=== PATIENT | female | born 1980 | race Caucasian/White ===

== ENCOUNTER 2017-08-01 14:13 | Emergency (ER) | payer OTHER ==
[2017-08-01 14:19] VITALS: BP 133/85; PULSE 76; RESP 18; TEMP 97.7
[2017-08-01] MEDS ORDERED: KETOROLAC 30 MG/ML 1 ML VIAL IM STA (14:26)
--- NOTE | 2017-08-01 14:28 | ED ---
ENT HPI - General Chief complaint: Dental/Oral Stated complaint: Dental Pain Time Seen by Provider: 08/01/17 14:19 Source: patient Mode of arrival: ambulatory Limitations: no limitations - History of Present Illness Initial comments: 36 year-old female patient presents to the emergency department today for complaints of left upper dental pain and facial swelling. Patient states that 2 days ago she broke a tooth off and has been having pain since. Patient states that over the last day or 2 she has been developing some swelling to the outside of the face. States she has been taking Advil and applying ice however this is not helping her symptoms. She states that she did call her dentist and does have an appointment for Friday. She denies any difficulty swallowing, or difficulty opening and closing her mouth. She denies any fever, chills, nausea , or vomiting. - Related Data Home Medications Medication Instructions Recorded Confirmed Gabapentin [Neurontin] 300 mg PO BID PRN 04/26/15 04/26/15 Sulfamethox-Tmp 800-160Mg [Bactrim 1 each PO Q12HR 04/26/15 04/26/15 Ds] hydrOXYzine PAMOATE [Hydroxyzine 50 mg PO QID PRN 04/26/15 04/26/15 Pamoate] traMADol HCL [Ultram] 50 mg PO Q6HR PRN 04/26/15 04/26/15 Previous Rx's Medication Instructions Recorded Famotidine [Pepcid] 20 mg PO BID #14 tablet 04/26/15 predniSONE 20 mg PO BID #8 tab 04/26/15 Acetaminophen-Codeine 300-30mg 1 tab PO Q6H PRN #20 tablet 08/01/17 [Tylenol #3] Clindamycin [Cleocin] 300 mg PO Q6H #80 capsule 08/01/17 Allergies Allergy/AdvReac Type Severity Reaction Status Date / Time Penicillins Allergy Anaphylaxis Verified 08/01/17 14:19 Review of Systems ROS Statement: Those systems with pertinent positive or pertinent negative responses have been documented in the HPI. ROS Other: All systems not noted in ROS Statement are negative. Past Medical History Past Medical History: Asthma History of Any Multi-Drug Resistant Organisms: None Reported Past Surgical History: Section, Cholecystectomy Past Psychological History: No Psychological Hx Reported Smoking Status: Current every day smoker Past Alcohol Use History: Occasional Past Drug Use History: None Reported General Exam Limitations: no limitations General appearance: alert, in no apparent distress, other (This is a well- developed, well-nourished adult female patient in no acute distress. Vital signs on presentation 97.7F, pulse 76, respirations 18, blood pressure 133/85, pulse ox 100% on room air.) Eye exam: Present: normal appearance, PERRL, EOMI. Absent: scleral icterus, conjunctival injection, periorbital swelling ENT exam: Present: normal exam, normal oropharynx, mucous membranes moist, other (Patient has multiple dental caries, fractured tooth #13. There is surrounding gingival erythema and swelling, no area of drainable abscess. There is mild outside facial swelling on the left side.) Neck exam: Present: normal inspection. Absent: tenderness, meningismus, lymphadenopathy Respiratory exam: Present: normal lung sounds bilaterally. Absent: respiratory distress, wheezes, rales, rhonchi, stridor Cardiovascular Exam: Present: regular rate, normal rhythm, normal heart sounds. Absent: systolic murmur, diastolic murmur, rubs, gallop, clicks Neurological exam: Present: alert, oriented X3, CN II-XII intact Psychiatric exam: Present: normal affect, normal mood Skin exam: Present: warm, dry, intact, normal color. Absent: rash Course Vital Signs 08/01/17 14:17 Temperature 97.7 F Pulse Rate 76 Respiratory 18 Rate Blood Pressure 133/85 O2 Sat by Pulse 100 Oximetry Medical Decision Making - Medical Decision Making 36 year-old female patient presented to the emergency department today for evaluation of left upper dental pain and facial swelling. Physical examination did reveal a fractured tooth #13 with surrounding gingival erythema and swelling. There was no evidence of drainable abscess. As patient does have some mild facial swelling we will put her on clindamycin. We'll also give her Tylenol No. 3 with codeine for pain relief. She does have an appointment with her dentist on Friday, she is urged to keep this appointment. She is also instructed to return here immediately for any other new, worsening, or concerning symptoms. She verbalizes understanding and agrees with this plan. Disposition Clinical Impression: Dental caries, Broken tooth Disposition: HOME SELF-CARE Condition: Good Instructions: Dental Abscess (ED), Dental Caries (ED), Toothache (ED) Additional Instructions: Take antibiotic and pain medication prescription as directed. Apply warm compresses or cool compresses to the outside of the face. Keep your dentist appointment as have planned. Return here immediately for any new, worsening, or concerning symptoms. Prescriptions: Acetaminophen-Codeine 300-30mg [Tylenol #3] 1 tab PO Q6H PRN #20 tablet PRN Reason: Pain Clindamycin [Cleocin] 300 mg PO Q6H #80 capsule Referrals: Siva Villalpando MD [Primary Care Provider] - 1-2 days Time of Disposition: 14:28
== END 2017-08-01 14:37 | disposition home or self-care (01) ==
LOC: EC 14:13
DX: S02.5XXA Fracture of tooth (traumatic), initial encounter for closed fracture (principal); K02.9 Dental caries, unspecified; F17.200 Nicotine dependence, unspecified, uncomplicated; Z88.0 Allergy status to penicillin; X58.XXXA Exposure to other specified factors, initial encounter
CPT/HCPCS: 99282; 96372; J1885

== ENCOUNTER → 2017-10-04 | Outpatient (CLI) | payer SELFPAY ==
[2017-10-04 10:29] LABS: ALT 33 U/L (9-52); AST 18 U/L (14-36); Blood Urea Nitrogen 12 mg/dL (7-17); Glucose 85 mg/dL (74-99)
[2017-10-04 10:42] LABS: HCG,Quantitative Serum <2.4 mIU/mL; T4, Free (Free Thyroxine) 0.89 ng/dL (0.78-2.19)
[2017-10-04 17:13] LABS: Thyroid Peroxidase Antibodies 30.1 U/mL (0.0-60.0); Vitamin D 25 Hydroxy 15.9 ng/mL (30.0-100.0)
[2017-10-04 17:15] LABS: Insulin Level 7.4 mIU/mL (3.0-25.0)
[2017-10-04 19:57] LABS: Hemoglobin A1C 4.9 % (4.0-6.0)
[2017-10-05 12:41] LABS: HIV AB P24 Non-Reactive (Non-Reactive); HIV P24 AG Non-Reactive (Non-Reactive)
[2017-10-06 07:47] LABS: Varicella IgM Antibody 0.62 INDEX (<=0.90)
== END | disposition home or self-care (01) ==
LOC: LABWHC1 09:05
PROVIDERS: ATTEND Obstetrics & Gynecology Reproductive Endocrinology
DX: N97.0 Female infertility associated with anovulation (principal)
CPT/HCPCS: 36415; 82306; 82565; 82670; 82947; 83001; 83036; 83498; 83520; 83525; 84146; 84402; 84403; 84439; 84443; 84450; 84460; 84481; 84520; 84702; 86376; 86644; 86645; 86762; 86780; 86787; 86800; 86850; 86900; 86901; 87390

== ENCOUNTER 2022-01-01 10:05 | Emergency (ER) | payer OTHER ==
[2022-01-01 10:09] VITALS: BP 141/81; PULSE 64; RESP 20; TEMP 98.6
[2022-01-01] MEDS ORDERED: IBUPROFEN 600 MG TAB PO STA (10:47)
--- NOTE | 2022-01-01 11:44 | XR ---
EXAMINATION TYPE: XR chest 2V DATE OF EXAM: 01/01/2022 COMPARISON: 06/25/2013 HISTORY: 41-year-old female chest wall pain TECHNIQUE: PA and lateral views FINDINGS: Heart normal size. Aorta and pulmonary vasculature within normal limits. Mild interstitial prominence and peribronchial cuffing. No consolidation or pleural effusion. IMPRESSION: Interstitial prominence and peribronchial cuffing. Correlate for bronchitis, asthma, or underlying at ypical pneumonias.
--- NOTE | 2022-01-01 12:23 | ED ---
URI HPI - General Chief Complaint: Upper Respiratory Infection Stated Complaint: Covid+/Abd Swelling Time Seen by Provider: 01/01/22 10:14 Source: patient, RN notes reviewed, old records reviewed Mode of arrival: ambulatory Limitations: no limitations - History of Present Illness Initial Comments: Patient is a 41-year-old female, history of mild asthma, presenting to emergency Department with complaints of some bilateral lower rib pain for the past few days. Patient was diagnosed with cold at exactly 1 week ago. She has been having pretty mild symptoms. Her PCP prescribed her antiviral medication as well as a steroid and a cough medicine. She does feel like overall her symptoms have been improving. She states over the past few days she has been having some bilateral lower rib pain, pain with deep inhalation. She has not been trying any Tylenol or Motrin for this. She states her doctor told her not to take ibuprofen. She denies any fevers or chills, no shortness of breath. She states she does have history of anxiety and feels like sometimes her anxiety is worsening secondary to her worry over the virus. And denies any other comp laints at this time. - Related Data Home Medications Medication Instructions Recorded Confirmed Gabapentin [Neurontin] 300 mg PO BID PRN 04/26/15 04/26/15 Sulfamethox-Tmp 800-160Mg [Bactrim 1 each PO Q12HR 04/26/15 04/26/15 Ds] hydrOXYzine pamoate [Hydroxyzine 50 mg PO QID PRN 04/26/15 04/26/15 Pamoate] traMADol HCL [Ultram] 50 mg PO Q6HR PRN 04/26/15 04/26/15 Previous Rx's Medication Instructions Recorded Famotidine [Pepcid] 20 mg PO BID #14 tablet 04/26/15 predniSONE [Deltasone] 20 mg PO BID #8 tab 04/26/15 Acetaminophen-Codeine 300-30mg 1 tab PO Q6H PRN #20 tablet 08/01/17 [Tylenol #3] Clindamycin [Cleocin] 300 mg PO Q6H #80 capsule 08/01/17 Allergies Allergy/AdvReac Type Severity Reaction Status Date / Time Penicillins Allergy Anaphylaxis Verified 01/01/22 10:09 Review of Systems ROS Statement: Those systems with pertinent positive or pertinent negative responses have been documented in the HPI. ROS Other: All systems not noted in ROS Statement are negative. Past Medical History Past Medical History: Asthma History of Any Multi-Drug Resistant Organisms: None Reported Past Surgical History: Section, Cholecystectomy Past Psychological History: No Psychological Hx Reported Smoking Status: Current every day smoker Past Alcohol Use History: Occasional Past Drug Use History: None Reported General Exam - General Exam Comments Initial Comments: GENERAL: Patient is well-developed and well-nourished. Patient is nontoxic and in no acute distress. HEAD: Atraumatic, normocephalic. EYES: Pupils equal round and reactive to light, extraocular movements intact, sclera anicteric, conjunctiva are normal. Eyelids were unremarkable. ENT: TMs normal, nares patent, oropharynx clear without exudates. Moist mucous membranes. NECK: Normal range of motion, supple without lymphadenopathy or JVD. LUNGS: Unlabored respirations. Breath sounds clear to auscultation bilaterally and equal. No wheezes rales or rhonchi. HEART: Regular rate and rhythm without murmurs, rubs or gallops. ABDOMEN: Soft, nontender, normoactive bowel sounds. No guarding, no rebound. No masses appreciated. MUSCULOSKELETAL: Normal extremities with adequate strength and normal range of motion, no pitting or edema. No clubbing or cyanosis. NEUROLOGICAL: Patient is alert and oriented x 3. Normal speech, normal gait. PSYCH: Normal mood, normal affect. SKIN: Warm, Dry, normal turgor, no rashes or lesions noted. Limitations: no limitations Course Vital Signs 01/01/22 10:07 Temperature 98.6 F Pulse Rate 64 Respiratory 20 Rate Blood Pressure 141/81 O2 Sat by Pulse 98 Oximetry Medical Decision Making - Medical Decision Making Patient is a 41-year-old female here with pruritic chest discomfort over the past couple days. She was diagnosed with Covid one week ago, is currently on antivirals, prednisone. Her symptoms have been improving. She has pain with deep inhalation, lower bilateral rib pain. Her vital signs are completely stable. Chest x-ray shows interstitial prominence and appear rebound, coughing, correlate for bronchitis, asthma. Patient was given ibuprofen here in the ER and has been resting comfortably. Her vital signs have been stable. I discussed these findings with the patient. I do feel like her symptoms are consistent with pleurisy. I recommended continuing the prescribed medications, she may take Tylenol or ibuprofen for any discomfort. She can follow up with her PCP. Patient is agreeable to this plan of care and she is stable for discharge. Disposition Clinical Impression: Pleuritic chest pain Disposition: HOME SELF-CARE Condition: Stable Instructions (If sedation given, give patient instructions): Pleurisy (ED) Additional Instructions: Please return to the Emergency Department if symptoms worsen or any other concerns. Continue with your already prescribed medications. May take Tylenol and/or Motrin for any discomfort. Follow-up with your primary care as needed. Is patient prescribed a controlled substance at d/c from ED?: No Referrals: Umberto Hilario Jr, [Primary Care Provider] - 1-2 days Time of Disposition: 12:22
== END 2022-01-01 12:36 | disposition home or self-care (01) ==
LOC: EC 10:05
DX: R07.81 Pleurodynia (principal); J45.909 Unspecified asthma, uncomplicated; F17.200 Nicotine dependence, unspecified, uncomplicated; Z88.0 Allergy status to penicillin; Z90.49 Acquired absence of other specified parts of digestive tract
CPT/HCPCS: 71046; 99283

== ENCOUNTER 2023-06-06 08:37 | Emergency (ER) | payer OTHER ==
[2023-06-06 08:40] VITALS: TEMP 98.4
[2023-06-06] MEDS ORDERED: SODIUM CHLORIDE 0.9% 1,000 ML IV STA (08:57)
[2023-06-06] MEDS ORDERED: ONDANSETRON 4 MG/2 ML VIAL IVP STA ×2 (08:57→09:59)
[2023-06-06] MEDS ORDERED: FAMOTIDINE 20 MG/2 ML VIAL IV STA (08:57)
--- NOTE | 2023-06-06 09:01 | ED ---
General Adult HPI - General Chief complaint: Abdominal Pain Stated complaint: Abdominal pain Time Seen by Provider: 06/06/23 08:43 Source: patient, RN notes reviewed Mode of arrival: ambulatory Limitations: no limitations - History of Present Illness Initial comments: Patient is a pleasant 42-year-old female presenting to the emergency department with concerns with abdominal pain. Onset of symptoms was yesterday. Patient states it feels a pressure. Patient states there may be some mild associated nausea. Patient states symptoms are mild at this time. Patient does have some associated chest and back discomfort as well. No history of similar symptoms previously. - Related Data Home Medications Medication Instructions Recorded Confirmed Gabapentin [Neurontin] 300 mg PO BID PRN 04/26/15 04/26/15 Sulfamethox-Tmp 800-160Mg [Bactrim 1 each PO Q12HR 04/26/15 04/26/15 Ds] hydrOXYzine pamoate [Hydroxyzine 50 mg PO QID PRN 04/26/15 04/26/15 Pamoate] traMADol HCL [Ultram] 50 mg PO Q6HR PRN 04/26/15 04/26/15 Previous Rx's Medication Instructions Recorded Famotidine [Pepcid] 20 mg PO BID #14 tablet 04/26/15 predniSONE [Deltasone] 20 mg PO BID #8 tab 04/26/15 Acetaminophen-Codeine 300-30mg 1 tab PO Q6H PRN #20 tablet 08/01/17 [Tylenol #3] Clindamycin [Cleocin] 300 mg PO Q6H #80 capsule 08/01/17 Allergies Allergy/AdvReac Type Severity Reaction Status Date / Time Penicillins Allergy Anaphylaxis Verified 06/06/23 08:40 Review of Systems ROS Statement: Those systems with pertinent positive or pertinent negative responses have been documented in the HPI. ROS Other: All systems not noted in ROS Statement are negative. Constitutional: Denies: fever Eyes: Denies: eye pain ENT: Denies: ear pain Respiratory: Denies: dyspnea Cardiovascular: Reports: as per HPI Endocrine: Denies: fatigue Gastrointestinal: Reports: as per HPI, abdominal pain Past Medical History Past Medical History: Asthma History of Any Multi-Drug Resistant Organisms: None Reported Past Surgical History: Section, Cholecystectomy Past Psychological History: No Psychological Hx Reported Smoking Status: Current every day smoker Past Alcohol Use History: Occasional Past Drug Use History: None Reported General Exam Limitations: no limitations General appearance: alert, in no apparent distress Head exam: Present: normocephalic Eye exam: Present: normal appearance Neck exam: Present: normal inspection Respiratory exam: Present: normal lung sounds bilaterally. Absent: chest wall tenderness Cardiovascular Exam: Present: regular rate, normal rhythm Expanded Peripheral pulses: 2+: Radial (R), Radial (L), Posterior Tibialis (R), Posterior Tibialis (L), Dorsalis Pedis (R), Dorsalis Pedis (L) GI/Abdominal exam: Present: soft, tenderness (Mild right-sided tenderness), normal bowel sounds. Absent: distended, guarding, rebound, rigid, pulsatile mass Extremities exam: Present: normal inspection. Absent: pedal edema, calf tende rness Neurological exam: Present: alert Psychiatric exam: Present: normal affect, normal mood Skin exam: Present: normal color Course Vital Signs 06/06/23 08:38 Temperature 98.4 F Pulse Rate 75 Respiratory 20 Rate Blood Pressure 155/92 O2 Sat by Pulse 100 Oximetry EKG Findings - EKG Results: EKG: interpreted by ERMD, sinus rhythm, normal axis, normal QRS, normal ST/T EKG shows: bradycardia Medical Decision Making - Medical Decision Making Was pt. sent in by a medical professional or institution (, PA, STOCKING [employer]OX [employer] SUPERVISOR, urgent care, hospital, or assisted...) When possible be specific @ -No Did you speak to anyone other than the patient for history (EMS, parent, family, police, friend...)? What history was obtained from this source @ -No Did you review nursing and triage notes (agree or disagree)? Why? @ -I reviewed and agree with nursing and triage notes Were old charts reviewed (outside hosp., previous admission, EMS record, old EKG, old radiological studies, urgent care reports/EKG's, assisted records)? Report findings @ -No old charts were reviewed Differential Diagnosis (chest pain, altered mental status, abdominal pain women, abdominal pain men, vaginal bleeding, weakness, fever, dyspnea, syncope, headache, dizziness, GI bleed, back pain, seizure, CVA, palpatations, mental health, musculoskeletal)? @ -Differential Abdominal Pain Men: Appendicitis, cholecystitis, diverticulosis, ischemic bowel, pancreatitis, hepatitis, UTI, gastroenteritis, AAA, incarcerated hernia, bowel obstruction, constipation, inflammatory bowel, hepatitis, peptic ulcer disease, splenic infarction, perforated viscus, testicular torsion, this is not meant to be an all-inclusive list EKG interpreted by me (3pts min.). @ -As above X-rays interpreted by me (1pt min.). @ -Chest and abdominal x-rays reveal no acute abnormality CT interpreted by me (1pt min.). @ -Report reviewed U/S interpreted by me (1pt. min.). @ -None done What testing was considered but not performed or refused? (CT, X-rays, U/S, labs)? Why? @ -None What meds were considered but not given or refused? Why? @ -None Did you discuss the management of the patient with other professionals (professionals i.e. , PA, ST[employer] SUPERVISOR, lab, RT, psych nurse, hospice social worker, personal lines underwriter, teacher, armored vehicle officer, pillowcase cutter)? Give summary @ -No Was smoking cessation discussed for >3mins.? @ -No Was critical care preformed (if so, how long)? @ -No Were there social determinants of health that impacted care today? How? (Homelessness, low income, unemployed, alcoholism, drug addiction, transportation, low edu. Level, literacy, decrease access to med. care, [facility], rehab)? @ -No Was there de-escalation of care discussed even if they declined (Discuss DNR or withdrawal of care, Hospice)? DNR status @ -No What co-morbidities impacted this encounter? (DM, HTN, Smoking, COPD, CAD, Cancer, CVA, ARF, Chemo, Hep., AIDS, mental health diagnosis, sleep apnea, morbid obesity)? @ -None Was patient admitted / discharged? Hospital course, mention meds given and route, prescriptions, significant lab abnormalities, going to OR and other pertinent info. @ -Patient reevaluated and resting comfortably in bed. Patient states she did have a panic attack however that has resolved. Abdomen soft and nontender. Patient updated on results. Patient is comfortable with discharge home and receptive to oral medication. Patient states she did try a fleets enema earlier without much improvement. Undiagnosed new problem with uncertain prognosis? @ -No Drug Therapy requiring intensive monitoring for toxicity (Heparin, Nitro, Ins ulin, Cardizem)? @ -No Were any procedures done? @ -No Diagnosis/symptom? @ -Abdominal pain Acute, or Chronic, or Acute on Chronic? @ -Acute Uncomplicated (without systemic symptoms) or Complicated (systemic symptoms)? @ -default Side effects of treatment? @ -No Exacerbation, Progression, or Severe Exacerbation? @ -No Poses a threat to life or bodily function? How? (Chest pain, [place], ME, pneumonia, PE, COPD, DKA, ARF, appy, cholecystitis, CVA, Diverticulitis, Homicidal, Suicidal, threat to staff... and all critical care pts) @ -No - Lab Data Result diagrams: 06/06/23 09:00 06/06/23 09:00 Lab Results 06/06/23 06/06/23 06/06/23 Range/Units 09:00 09:00 09:00 WBC 9.9 (3.8-10.6) k/uL RBC 4.40 (3.80-5.40) m/uL Hgb 13.7 (11.4-16.0) gm/dL Hct 41.8 (34.0-46.0) % MCV 94.9 (80.0-100.0) fL MCH 31.2 (25.0-35.0) pg MCHC 32.8 (31.0-37.0) g/dL RDW 12.8 (11.5-15.5) % Plt Count 241 (150-450) k/uL MPV 8.1 Neutrophils % 53 % Lymphocytes % 38 % Monocytes % 6 % Eosinophils % 2 % Basophils % 0 % Neutrophils # 5.3 (1.3-7.7) k/uL Lymphocytes # 3.8 (1.0-4.8) k/uL Monocytes # 0.6 (0-1.0) k/uL Eosinophils # 0.2 (0-0.7) k/uL Basophils # 0.0 (0-0.2) k/uL PT 10.3 (9.0-12.0) sec INR 1.0 (<1.2) APTT 22.9 (22.0-30.0) sec D-Dimer 0.38 (<0.60) mg/L FEU Sodium (137-145) mmol/L Potassium (3.5-5.1) mmol/L Chloride (98-107) mmol/L Carbon Dioxide (22-30) mmol/L Anion Gap mmol/L BUN (7-17) mg/dL Creatinine (0.52-1.04) mg/dL Est GFR (CKD-EPI)AfAm (>60 ml/min/1.73 sqM) Est GFR (CKD-EPI)NonAf (>60 ml/min/1.73 sqM) Glucose (74-99) mg/dL Calcium (8.4-10.2) mg/dL Total Bilirubin (0.2-1.3) mg/dL AST (14-36) U/L ALT (4-34) U/L Alkaline Phosphatase (38-126) U/L Troponin I (0.000-0.034) ng/mL Total Protein (6.3-8.2) g/dL Albumin (3.5-5.0) g/dL Amylase (30-110) U/L Lipase (23-300) U/L Urine Color Colorless Urine Appearance Clear (Clear) Urine pH 7.0 (5.0-8.0) Ur Specific Merkel 1.010 (1.001-1.035) Urine Protein Negative (Negative) Urine Glucose (UA) Negative (Negative) Urine Ketones Negative (Negative) Urine Blood Negative (Negative) Urine Nitrite Negative (Negative) Urine Bilirubin Negative (Negative) Urine Urobilinogen <2.0 (<2.0) mg/dL Ur Leukocyte Esterase Negative (Negative) 06/06/23 06/06/23 Range/Units 09:00 09:00 WBC (3.8-10.6) k/uL RBC (3.80-5.40) m/uL Hgb (11.4-16.0) gm/dL Hct (34.0-46.0) % MCV (80.0-100.0) fL MCH (25.0-35.0) pg MCHC (31.0-37.0) g/dL RDW (11.5-15.5) % Plt Count (150-450) k/uL MPV Neutrophils % % Lymphocytes % % Monocytes % % Eosinophils % % Basophils % % Neutrophils # (1.3-7.7) k/uL Lymphocytes # (1.0-4.8) k/uL Monocytes # (0-1.0) k/uL Eosinophils # (0-0.7) k/uL Basophils # (0-0.2) k/uL PT (9.0-12.0) sec INR (<1.2) APTT (22.0-30.0) sec D-Dimer (<0.60) mg/L FEU Sodium 139 (137-145) mmol/L Potassium 4.3 (3.5-5.1) mmol/L Chloride 108 H (98-107) mmol/L Carbon Dioxide 26 (22-30) mmol/L Anion Gap 5 mmol/L BUN 14 (7-17) mg/dL Creatinine 0.61 (0.52-1.04) mg/dL Est GFR (CKD-EPI)AfAm >90 (>60 ml/min/1.73 sqM) Est GFR (CKD-EPI)NonAf >90 (>60 ml/min/1.73 sqM) Glucose 77 (74-99) mg/dL Calcium 8.9 (8.4-10.2) mg/dL Total Bilirubin 0.6 (0.2-1.3) mg/dL AST 24 (14-36) U/L ALT 19 (4-34) U/L Alkaline Phosphatase 41 (38-126) U/L Troponin I <0.012 (0.000-0.034) ng/mL Total Protein 6.5 (6.3-8.2) g/dL Albumin 3.9 (3.5-5.0) g/dL Amylase 77 (30-110) U/L Lipase 199 (23-300) U/L Urine Color Urine Appearance (Clear) Urine pH (5.0-8.0) Ur Specific Merkel (1.001-1.035) Urine Protein (Negative) Urine Glucose (UA) (Negative) Urine Ketones (Negative) Urine Blood (Negative) Urine Nitrite (Negative) Urine Bilirubin (Negative) Urine Urobilinogen (<2.0) mg/dL Ur Leukocyte Esterase (Negative) Disposition Clinical Impression: Abdominal pain, Constipation Disposition: HOME SELF-CARE Condition: Stable Instructions (If sedation given, give patient instructions): Abdominal Pain (ED), Constipation (ED), High Fiber Diet (ED), Fleet Enema (ED) Additional Instructions: Please do follow-up with your primary care physician in the next day or 2 for recheck. Return for increased pain, chest or back pain, unable to have bowel movement, vomiting, fevers, worsening symptoms or other concerns. [id number] prune juice or magnesium citrate or Fleet's enema if needed Is patient prescribed a controlled substance at d/c from ED?: No Referrals: Umberto Hilario Jr, [Primary Care Provider] - 1-2 days Time of Disposition: 11:01
[2023-06-06 09:23] LABS: Basophils % (A) 0 %; Eosinophils # (A) 0.2 k/uL (0-0.7); Eosinophils % (A) 2 %; HCT 41.8 % (34.0-46.0); HGB 13.7 gm/dL (11.4-16.0); Lymphocytes # (A) 3.8 k/uL (1.0-4.8); Lymphocytes % (A) 38 %; MCH 31.2 pg (25.0-35.0); MCHC 32.8 g/dL (31.0-37.0); MCV 94.9 fL (80.0-100.0); Mean Platelet Volume 8.1; Monocytes # (A) 0.6 k/uL (0-1.0); Monocytes % (A) 6 %; Neutrophils # (A) 5.3 k/uL (1.3-7.7); Neutrophils % (A) 53 %; Platelet Count 241 k/uL (150-450); RDW 12.8 % (11.5-15.5); WBC 9.9 k/uL (3.8-10.6)
[2023-06-06 09:31] LABS: Appearance,Urine Clear (Clear); Bilirubin,Urine Negative (Negative); Blood,Urine Negative (Negative); Color,Urine Colorless; Glucose,Urine (UA) Negative (Negative); Ketones,Urine Negative (Negative); Leukocyte Esterase,Urine Negative (Negative); Nitrite,Urine Negative (Negative); Protein,Urine Negative (Negative); Urobilinogen,Urine <2.0 mg/dL (<2.0)
--- NOTE | 2023-06-06 09:38 | XR ---
EXAMINATION TYPE: XR chest 2V DATE OF EXAM: 06/06/2023 COMPARISON: 01/01/2022 HISTORY: Chest pain TECHNIQUE: Frontal and lateral views of the chest are obtained. FINDINGS: There is no focal air space opacity. No evidence for pneumothorax. No pleural effusion. The cardiac silhouette size is within normal limits. The osseous structures are grossly intact. IMPRESSION: 1. No acute cardiopulmonary process.
[2023-06-06 09:39] LABS: ALT 19 U/L (4-34); AST 24 U/L (14-36); African American GFR (CKD) >90 (>60 ml/min/1.73 sqM); Albumin 3.9 g/dL (3.5-5.0); Alkaline Phosphatase 41 U/L (38-126); Amylase 77 U/L (30-110); Anion Gap 5 mmol/L; Blood Urea Nitrogen 14 mg/dL (7-17); Calcium 8.9 mg/dL (8.4-10.2); Carbon Dioxide 26 mmol/L (22-30); Chloride 108 mmol/L (98-107); Glucose 77 mg/dL (74-99); Lipase 199 U/L (23-300); Non-African American GFR(CKD) >90 (>60 ml/min/1.73 sqM); Potassium 4.3 mmol/L (3.5-5.1); Sodium 139 mmol/L (137-145); Total Bilirubin 0.6 mg/dL (0.2-1.3); Total Protein 6.5 g/dL (6.3-8.2)
[2023-06-06 09:40] LABS: Partial Thromboplastin Time 22.9 sec (22.0-30.0); Prothrombin Time 10.3 sec (9.0-12.0)
--- NOTE | 2023-06-06 09:40 | XR ---
EXAMINATION TYPE: XR KUB DATE OF EXAM: 06/06/2023 COMPARISON: 07/26/2011 HISTORY: Pain TECHNIQUE: Single supine KUB image of the abdomen is obtained FINDINGS: Small bowel demonstrates no evidence for dilatation or air fluid levels. Gas and fecal material is seen in non-distended colon. No convincing evidence for pneumoperitoneum. 5.5 mm calculus overlies the upper pole left kidney as was seen on prior study. The lung bases are clear. The osseous structures are intact. IMPRESSION: 1. Overall nonobstructive bowel gas pattern.
--- NOTE | 2023-06-06 10:46 | CT ---
EXAMINATION TYPE: CT abdomen pelvis w con DATE OF EXAM: 06/06/2023 COMPARISON: 07/26/2011 HISTORY: Abdominal pain CT DLP: 709.8 mGycm CONTRAST: CT scan of the abdomen and pelvis is performed without Oral Contrast and with IV Contrast, patient in jected with 100 ml mL of Isovue 300. FINDINGS: LUNG BASES-: No visible nodule. No infiltrate. LIVER/GB: The gallbladder is surgically absent. No space occupying hepatic lesion. Biliary tree is of normal caliber. PANCREAS: No inflammation. No distinct mass. SPLEEN: No splenic enlargement. No lesion seen. ADRENALS: No nodule. No thickening. KIDNEYS/BLADDER: No hydronephrosis. Nonobstructing 8.7 mm calculus upper pole left kidney with a foc al area of parenchymal scarring. No additional calculi seen. No distinct renal mass. Urinary bladder grossly unremarkable. BOWEL: Normal appendix. There is mobile cecum noted which resides within the mid abdomen. There is m oderate fecal stasis seen throughout the colon. Normal bowel caliber. No inflammation. GENITAL ORGANS: No gross abnormality. LYMPH NODES: No greater than 1cm abdominal or pelvic lymph nodes are appreciated. AORTA: No significant abnormality. OSSEOUS STRUCTURES: No significant abnormality is seen. OTHER: No significant additional abnormality is seen. IMPRESSION: 1. There is mobile cecum noted which resides within the mid abdomen. There is moderate fecal stasis s een throughout the colon. 2.Nonobstructing 8.7 mm calculus upper pole left kidney with a focal area of parenchymal scarring.
[2023-06-06] MEDS ORDERED: LACTULOSE 20 GM/30 ML CUP PO ONE (11:00)
[2023-06-06 15:28] VITALS: BP 132/101; PULSE 66; RESP 18
== END 2023-06-06 11:17 | disposition home or self-care (01) ==
LOC: EC 08:37
DX: K59.00 Constipation, unspecified (principal); J45.909 Unspecified asthma, uncomplicated; F17.200 Nicotine dependence, unspecified, uncomplicated; Z88.0 Allergy status to penicillin; Z90.49 Acquired absence of other specified parts of digestive tract
CPT/HCPCS: 36415; 85379; 80053; 82150; 83690; 84484; 85025; 85610; 85730; 81003; 71046; 74018; 74177; 99284; 96374; 96375; 96376; 96361 ×2; J2405; J3490; Q9967

== ENCOUNTER 2024-09-28 16:08 | Emergency (ER) | payer OTHER ==
[2024-09-28 16:20] VITALS: BP 112/78; PULSE 82; TEMP 98.6
--- NOTE | 2024-09-28 17:42 | ED ---
General Adult HPI - General Chief complaint: Skin/Abscess/Foreign Body Stated complaint: Abcess/Cyst Time Seen by Provider: 09/28/24 16:28 Source: patient, RN notes reviewed Mode of arrival: ambulatory Limitations: no limitations - History of Present Illness Initial comments: 44-year-old female presents to the emergency department for evaluation of a "c yst "in the left side of her groin/labia. Patient reports that this has been there for a couple weeks but seems to be getting larger. She reports that it is somewhat painful. She denies any drainage from the area. She denies any recent fever, chills, nausea, vomiting. Denies any abnormal discharge or vaginal bleeding. She denies any urinary symptoms. - Related Data Home Medications Medication Instructions Recorded Confirmed Gabapentin [Neurontin] 300 mg PO BID PRN 04/26/15 04/26/15 Sulfamethox-Tmp 800-160Mg [Bactrim 1 each PO Q12HR 04/26/15 04/26/15 Ds] hydrOXYzine pamoate [Hydroxyzine 50 mg PO QID PRN 04/26/15 04/26/15 Pamoate] traMADol HCL [Ultram] 50 mg PO Q6HR PRN 04/26/15 04/26/15 Previous Rx's Medication Instructions Recorded Famotidine [Pepcid] 20 mg PO BID #14 tablet 04/26/15 predniSONE [Deltasone] 20 mg PO BID #8 tab 04/26/15 Acetaminophen-Codeine 300-30mg 1 tab PO Q6H PRN #20 tablet 08/01/17 [Tylenol #3] Clindamycin [Cleocin] 300 mg PO Q6H #80 capsule 08/01/17 clindamycin HCL 300 mg PO QID #40 cap 09/28/24 Allergies Allergy/AdvReac Type Severity Reaction Status Date / Time Penicillins Allergy Anaphylaxis Verified 06/06/23 08:40 Review of Systems ROS Statement: Those systems with pertinent positive or pertinent negative responses have been documented in the HPI. ROS Other: All systems not noted in ROS Statement are negative. Past Medical History Past Medical History: Asthma History of Any Multi-Drug Resistant Organisms: None Reported Past Surgical History: Section, Cholecystectomy Past Psychological History: No Psychological Hx Reported Smoking Status: Current every day smoker Past Alcohol Use History: Occasional Past Drug Use History: None Reported General Exam Limitations: no limitations General appearance: alert, in no apparent distress Head exam: Present: atraumatic, normocephalic, normal inspection Respiratory exam: Present: normal lung sounds bilaterally. Absent: respiratory distress, wheezes, rales, rhonchi, stridor Cardiovascular Exam: Present: regular rate, normal rhythm, normal heart sounds. Absent: systolic murmur, diastolic murmur, rubs, gallop, clicks External exam: Present: other (Cystic structure to the anterior left labia without overlying skin discoloration, no fluctuance present) Neurological exam: Present: alert, oriented X3 Psychiatric exam: Present: normal affect, normal mood Skin exam: Present: warm, dry, intact, normal color. Absent: rash Course Vital Signs 09/28/24 09/28/24 16:17 17:48 Temperature 98.6 F Pulse Rate 82 Respiratory 20 16 Rate Blood Pressure 112/78 O2 Sat by Pulse 99 Oximetry Medical Decision Making - Medical Decision Making Was pt. sent in by a medical professional or institution (, PA, [employer], urgent care, hospital, or penitentiary...) When possible be specific @ -No Did you speak to anyone other than the patient for history (EMS, parent, family, police, friend...)? What history was obtained from this source @ -No Did you review nursing and triage notes (agree or disagree)? Why? @ -I reviewed and agree with nursing and triage notes Were old charts reviewed (outside hosp., previous admission, EMS record, old EKG, old radiological studies, urgent care reports/EKG's, penitentiary records)? Report findings @ -No old charts were reviewed Differential Diagnosis (chest pain, altered mental status, abdominal pain women, abdominal pain men, vaginal bleeding, weakness, fever, dyspnea, syncope, headache, dizziness, GI bleed, back pain, seizure, CVA, palpatations, mental health, musculoskeletal)? @ -Bartholin abscess, cyst, cellulitis, this this is not all inclusive EKG interpreted by me (3pts min.). @ -None X-rays interpreted by me (1pt min.). @ -None done CT interpreted by me (1pt min.). @ -None done U/S interpreted by me (1pt. min.). @ -None done What testing was considered but not performed or refused? (CT, X-rays, U/S, labs)? Why? @ -None What meds were considered but not given or refused? Why? @ -None Did you discuss the management of the patient with other professionals (professionals i.e. , PA, [employer], lab, RT, psych nurse, social and political studies professor, universal branch consultant, teacher, eeo officer, case manager specialist)? Give summary @ -No Was smoking cessation discussed for >3mins.? @ -No Was critical care preformed (if so, how long)? @ -No Were there social determinants of health that impacted care today? How? (Homelessness, low income, unemployed, alcoholism, drug addiction, transportation, low edu. Level, literacy, decrease access to med. care, [facility], rehab)? @ -No Was there de-escalation of care discussed even if they declined (Discuss DNR or withdrawal of care, Hospice)? DNR status @ -No What co-morbidities impacted this encounter? (DM, HTN, Smoking, COPD, CAD, Cancer, CVA, ARF, Chemo, Hep., AIDS, mental health diagnosis, sleep apnea, morbid obesity)? @ -None Was patient admitted / discharged? Hospital course, mention meds given and route, prescriptions, significant lab abnormalities, going to OR and other pertinent info. @ -Discharged. Patient presented emergency department for evaluation of groin lesion. On examination, patient has a cystic-appearing structure to the left labial with no overlying skin redness, discoloration, no fluctuance present to the lesion. Advised patient that we will start antibiotics and advised her to follow-up with gynecology. She is understanding and agreeable with this plan. Patient stable at time discharge. Case discussed with Dr. Amos Undiagnosed new problem with uncertain prognosis? @ -No Drug Therapy requiring intensive monitoring for toxicity (Heparin, Nitro, Insulin, Cardizem)? @ -No Were any procedures done? @ -No Diagnosis/symptom? @ -Cyst Acute, or Chronic, or Acute on Chronic? @ -acute Uncomplicated (without systemic symptoms) or Complicated (systemic symptoms)? @ -uncomplicated Side effects of treatment? @ -No Exacerbation, Progression, or Severe Exacerbation? @ -No Poses a threat to life or bodily function? How? (Chest pain, [place], [place], pneumonia, PE, COPD, DKA, ARF, appy, cholecystitis, CVA, Diverticulitis, Homicidal, [place] icidal, threat to staff... and all critical care pts) @ -No Disposition Clinical Impression: Groin cyst Disposition: HOME SELF-CARE Condition: Stable Instructions (If sedation given, give patient instructions): Cyst (ED) Additional Instructions: Please follow up with gynecology. Return to the emergency department for new or worsening symptoms. Prescriptions: clindamycin HCL 300 mg PO QID #40 cap Is patient prescribed a controlled substance at d/c from ED?: No Referrals: Umberto Hilario Jr, DO [Primary Care Provider] - 1-2 days Fabiola Mccrary DO [Doctor of Osteopathic Medicine] - 1-2 days
[2024-09-28 17:49] VITALS: RESP 16
== END 2024-09-28 17:48 | disposition home or self-care (01) ==
LOC: EC 16:08
DX: L02.214 Cutaneous abscess of groin (principal); F17.200 Nicotine dependence, unspecified, uncomplicated; Z88.0 Allergy status to penicillin
CPT/HCPCS: 99283